=== PATIENT | male | born 1990 ===

== ENCOUNTER 2019-05-04 22:04 | Emergency (ER) | payer OTHER ==
[~2019-05-04] VITALS: Ht 172.7 cm; Wt 100.0 kg
[2019-05-04] MEDS ORDERED: ibuprofen tablet 400 MG TABLET PO ONE (22:40)
[2019-05-04 23:03] VITALS: BP 122/77
== END 2019-05-04 22:50 | disposition home or self-care (01) ==
LOC: ER 22:16
DX: B34.9 Viral infection, unspecified (principal)
CPT/HCPCS: 99282